=== PATIENT | female | born 1955 | race Hispanic/Latino ===

== ENCOUNTER → 2019-03-15 | Outpatient (CLI) | payer OTHER ==
[~2019-03-15] MED LIST: CIPRO500 MG PO; NORCO 7.5-3251 EACH PO; OXYBUTYNIN CHLOR5 MG PO; OXYBUTYNIN PO; PYRIDIUM100 MG PO; RAMIPRIL10 MG PO; TYLENOL WITH C1 EACH PO; ULTRAM50 MG PO
--- NOTE | 2019-03-15 09:37 | Diagnostic Imaging Report ---
EXAMINATION: SHOULDER RIGHT COMPLETE INDICATION: Shoulder pain COMPARISON: None FINDINGS: AP, internal and external rotation images of the right shoulder were obtained. No acute fracture or dislocation. Alignment appears anatomic. Mild acromioclavicular joint degenerative changes. The visualized portions of the lung appear clear. IMPRESSION: No acute osseous injury. Mild degenerative changes. Signed by: Ramila Eason MD on 03/15/2019 9:34 AM
== END ==
LOC: RAD 08:56
PROVIDERS: ATTEND Family Medicine
DX: M25.511 Pain in right shoulder (principal)